=== PATIENT | male | born 1990 | race Native Hawaiian/Other Pacific Islander ===

== ENCOUNTER 2016-11-30 19:31 | Emergency (ER) | payer OTHER ==
[~2016-11-30] VITALS: Ht 172.7 cm; Wt 63.5 kg
[2016-11-30 20:15] VITALS: BP 130/73; TEMP 98.2
== END 2016-11-30 20:17 | disposition home or self-care (01) ==
LOC: ED 19:31
DX: T15.91XA Foreign body on external eye, part unspecified, right eye, initial encounter (principal)
CPT/HCPCS: 99282

== ENCOUNTER 2018-02-24 16:34 | Emergency (ER) | payer OTHER ==
[~2018-02-24] VITALS: Ht 175.3 cm; Wt 53.5 kg
[2018-02-24 16:37] VITALS: TEMP 97.7
[2018-02-24 17:39] VITALS: BP 137/64
== END 2018-02-24 17:46 | disposition home or self-care (01) ==
LOC: ED 16:34
DX: S01.511A Laceration without foreign body of lip, initial encounter (principal); S00.531A Contusion of lip, initial encounter; W20.8XXA Other cause of strike by thrown, projected or falling object, initial encounter
CPT/HCPCS: 99283

== ENCOUNTER 2018-05-11 02:00 | Emergency (ER) | payer OTHER ==
[~2018-05-11] VITALS: Ht 175.3 cm; Wt 53.5 kg
[2018-05-11 02:45] VITALS: BP 125/86; TEMP 97.9
== END 2018-05-11 02:45 | disposition home or self-care (01) ==
LOC: ED 02:00
DX: T23.221A Burn of second degree of single right finger (nail) except thumb, initial encounter (principal); X12.XXXA Contact with other hot fluids, initial encounter; Y93.89 Activity, other specified; Y92.89 Other specified places as the place of occurrence of the external cause; Y99.8 Other external cause status
CPT/HCPCS: 99282; J1885

== ENCOUNTER 2018-11-13 05:31 | Emergency (ER) | payer OTHER | END 2018-11-13 06:04 | disposition home or self-care (01) | LOC: ED 05:31 | DX: M54.9 Dorsalgia, unspecified (principal) | CPT/HCPCS: 99281 ==

== ENCOUNTER 2018-11-13 07:59 | Emergency (ER) | payer OTHER ==
[~2018-11-13] VITALS: Ht 175.3 cm; Wt 53.5 kg
[2018-11-13 08:41] LABS: PLATELET COUNT 140 K/uL (142-355)
[2018-11-13 08:51] LABS: POTASSIUM 4.3 mmol/L (3.6-5.2)
[2018-11-13 13:45] VITALS: BP 121/79; TEMP 97.9
== END 2018-11-13 13:45 | disposition home or self-care (01) ==
LOC: ED 07:59
PROVIDERS: Emergency Medicine
DX: M54.5 Low back pain (principal); R07.89 Other chest pain; R55 Syncope and collapse
CPT/HCPCS: 36415; 80053; 80307; 80320; 81000; 82550; 82553; 84484; 85027; 93005; 96360; 96372; 99284; J1885

== ENCOUNTER 2019-03-11 15:25 | Inpatient (IN) | payer OTHER ==
[~2019-03-11] VITALS: Ht 175.3 cm; Wt 49.5 kg
[2019-03-11 15:43] VITALS: BP 103/73; TEMP 100.6
[2019-03-11 15:58] LABS: PLATELET COUNT 213 K/uL (142-355)
[2019-03-11 16:04] LABS: POTASSIUM 3.5 mmol/L (3.6-5.2)
[2019-03-11 16:27] VITALS: TEMP 101.3
[2019-03-11 18:24] VITALS: TEMP 99
[2019-03-11 18:40] VITALS: BP 99/62
[2019-03-11 20:00] VITALS: BP 98/64; TEMP 97.8
[2019-03-12] VITALS: BP 84/44; TEMP 97.5
[2019-03-12 02:13] VITALS: BP 98/64; TEMP 97.8; Ht 175.3 cm; Wt 49.5 kg
[2019-03-12 04:00] VITALS: BP 95/62; TEMP 97.6
[2019-03-12 05:49] LABS: POTASSIUM 3.1 mmol/L (3.6-5.2)
[2019-03-12 05:55] LABS: PLATELET COUNT 144 K/uL (142-355)
[2019-03-12] MEDS ORDERED: BUPR8SUB2 PO (06:24)
[2019-03-12] MEDS ORDERED: ALPR0.5T24 PO (06:25)
[2019-03-12 08:00] VITALS: BP 101/67; TEMP 97.7
== END 2019-03-12 10:45 | disposition home or self-care (01) | DRG 872 ==
LOC: ED 15:25 → MED/SURG 18:30
PROVIDERS: Internal Medicine; ADMIT Family Medicine
DX: A41.89 Other specified sepsis (principal); E86.0 Dehydration; R55 Syncope and collapse; E87.6 Hypokalemia; F11.10 Opioid abuse, uncomplicated
CPT/HCPCS: 36415; 80053; 81000; 83605; 85027; 87040; 96360; 96365; 99284; J0696; J3490